=== PATIENT | female | born 1980 | race Caucasian/White ===

== ENCOUNTER 2020-07-07 17:31 | Emergency (ER) | payer OTHER ==
[2020-07-07] MEDS ORDERED: Sodium Chloride 0.9% 10 ML Syringe FLUSH PRN (17:36)
[2020-07-07] MEDS ORDERED: diphenhydrAMINE 50 MG/ML SDV IVPUSH ONE (17:36)
[2020-07-07] MEDS ORDERED: Famotidine 20 MG/2 ML SDV IVPUSH ONE (17:36)
[2020-07-07] MEDS ORDERED: EPINEPHrine 1 MG/ML SDV IM ONE (17:36)
[2020-07-07] MEDS ORDERED: Hydrocortisone Sodium Succinate 100 MG/2 ML SDV IVPUSH ONE (17:37)
[2020-07-07] MEDS ORDERED: Sodium Chloride 0.9% 1,000 ML IV ONE (17:37)
--- NOTE | 2020-07-07 17:43 | EDM.PDOC ---
ED HPI GENERAL MEDICAL PROBLEM - General Stated Complaint: REACTION TO SOMETHING Time Seen by Provider: 07/07/20 17:31 Source of Information: Reports: Patient History Limitations: Reports: No Limitations - History of Present Illness INITIAL COMMENTS - FREE TEXT/NARRATIVE: Vivi is a 39 year old female, presents to the ED today with c/o allergic reaction, unsure to what. Patient was hiking around [facility] when symptoms started including sob, eye swelling, hives and itching. Patient denies any allergic reactions like this in the past, denies any known insect bites prior to arrival. Patient has taken no medications, nothing makes her symptoms better or worse. Patient is on an oral anti-fungal for the last week, unsure what the name is for fungal infection to her feet. Onset: Today, Sudden - Related Data Allergies Allergy/AdvReac Type Severity Reaction Status Date / Time No Known Allergies Allergy Verified 07/07/20 17:55 ED ROS ALLERGIC REACTION - Review of Systems Review Of Systems: Comprehensive ROS is negative, except as noted in HPI. ED EXAM GENERAL NO PERIP PULSE - Physical Exam Exam: See Below Exam Limited By: No Limitations General Appearance: Alert, WD/WN, No Apparent Distress, Anxious Eye Exam: Bilateral Eye: EOMI, PERRL Ears: Normal External Exam Nose: Normal Inspection, Normal Mucosa Throat/Mouth: Normal Inspection, Normal Oropharynx, Normal Voice, No Airway Compromise Head: Atraumatic, Facial Swelling Neck: Normal Inspection, Supple, Non-Tender Respiratory/Chest: No Respiratory Distress, Lungs Clear, Normal Breath Sounds, No Accessory Muscle Use Cardiovascular: Normal Peripheral Pulses, Regular Rate, Rhythm GI/Abdominal: Normal Bowel Sounds, Soft, Non-Tender Back Exam: Normal Inspection Extremities: Normal Inspection Neurological: Alert, Oriented Psychiatric: Anxious Skin Exam: Other (Urticarial rash, lids swollen nearly shut bilaterally) Lymphatic: No Adenopathy Course - Vital Signs Text/Narrative:: 1744-Patient arrived to ED with allergic reaction to unknown substance. Patient with significant eyelid swelling, hives, and c/o sob. She is not whe ezing, hx of asthma, no stridor, handling secretions without difficulty. Patient on anti-fungal for the last week otherwise nothing new, no exposures to insects that she is aware of. Patient given IM epinephrine, IV Benadryl, IV Pepcid and IV solu-medrol. Patient feeling better, rash and swelling/hives/redness have all improved and I feel patient is able to be discharged home, no rebound symptoms. Will cover with a 5 day course of prednisone to be started tomorrow morning. Zyrtec or Claritin daily for 5 days. Benadryl as needed. Epi-pens prescribed as needed. Recommend patient stop the oral anti-fungal she is on and follow up with regard to this with the prescribing provider as this may be what contributed to her allergic reaction today. Reasons to return to the ED discussed patient and family, patient agreeable and discharged in stable condition with significant other driving. Last Recorded V/S: Last Vital Signs Temp 36.8 C 07/07/20 18:26 Pulse 75 07/07/20 18:26 Resp 19 07/07/20 18:26 BP 124/78 07/07/20 18:15 Pulse Ox 100 07/07/20 18:26 - Orders/Labs/Meds Orders: Active Orders 24 hr Category Date Time Status Peripheral IV Care [RC] . DIRECTED Care 07/07/20 17:36 Active Sodium Chloride 0.9% [Saline Flush] Med 07/07/20 17:36 Active 10 ml FLUSH ASDIRECTED PRN Peripheral IV Insertion Adult [OM.PC] Routine Oth 07/07/20 17:36 Ordered Medication Orders Sodium Chloride (Saline Flush) 10 ml FLUSH ASDIRECTED PRN PRN Reason: Keep Vein Open Last Admin: 07/07/20 18:49 Dose: 10 ml Documented by: CHOLO Meds: Medications Generic Name Dose Route Start Last Admin Trade Name Freq PRN Reason Stop Dose Admin Sodium Chloride 10 ml 07/07/20 17:36 07/07/20 18:49 Saline Flush FLUSH 10 ml ASDIRECTED PRN Administration Keep Vein Open Discontinued Medications Generic Name Dose Route Start Last Admin Trade Name Freq PRN Reason Stop Dose Admin Diphenhydramine HCl 50 mg 07/07/20 17:36 07/07/20 17:50 Benadryl IVPUSH 07/07/20 17:37 50 mg ONETIME ONE Administration Epinephrine HCl 0.3 mg 07/07/20 17:36 07/07/20 17:49 Adrenalin IM 07/07/20 17:37 0.3 mg ONETIME ONE Administration Famotidine 20 mg 07/07/20 17:36 07/07/20 17:50 Pepcid IVPUSH 07/07/20 17:37 20 mg ONETIME ONE Administration Hydrocortisone Sodium Succinate 125 mg 07/07/20 17:37 Solu-Cortef IVPUSH 07/07/20 17:38 ONETIME ONE Sodium Chloride 1,000 mls @ 999 mls/hr 07/07/20 17:37 07/07/20 17:50 Normal Saline IV 07/07/20 18:37 999 mls/hr .BOLUS ONE Administration Methylprednisolone Sodium Succinate 125 mg 07/07/20 17:49 07/07/20 17:51 Solu-Medrol IVPUSH 07/07/20 17:50 125 mg ONETIME ONE Administration Departure - Departure Time of Disposition: 20:00 Disposition: Home, Self-Care 01 Condition: Good Clinical Impression: Allergic reaction caused by a drug Qualifiers: Encounter type: initial encounter Qualified Code(s): T78.40XA - Allergy, unspecified, initial encounter - Discharge Information Instructions: Anaphylactic Reaction, Adult, How to Use an Auto-Injector Pen Referrals: PCP,None [Primary Care Provider] - Additional Instructions: Start oral prednisone tomorrow morning. Benadryl 25 mg every 4-6 hours as needed for itching/hives Zyrtec or Claritin daily for the next 5 days. Pepcid 20 mg daily for 5 days. Epi-pen as needed per package instructions. Please stop the anti-fungal medication you are taking for your feet and follow up with the prescribing provider regarding this. Return here with any worsening symptoms. Sepsis Event Note (ED) - Focused Exam Vital Signs: Vital Signs Temp Pulse Pulse Resp BP Pulse Ox 07/07/20 18:26 36.8 C 75 19 100 07/07/20 18:15 37.2 C 65 63 15 121/79 100 07/07/20 18:06 65 15 121/79 100 07/07/20 17:56 37.2 C 63 12 124/78 99 07/07/20 17:49 68 16 124/78 99 07/07/20 17:46 69 15 154/85 H 99 07/07/20 17:35 72 15 145/91 H 99 - My Orders Last 24 Hours: My Active Orders 07/07/20 17:36 Peripheral IV Care [RC] . DIRECTED Sodium Chloride 0.9% [Saline Flush] 10 ml FLUSH ASDIRECTED PRN Peripheral IV Insertion Adult [OM.PC] Routine - Assessment/Plan Last 24 Hours: My Active Orders 07/07/20 17:36 Peripheral IV Care [RC] . DIRECTED Sodium Chloride 0.9% [Saline Flush] 10 ml FLUSH ASDIRECTED PRN Peripheral IV Insertion Adult [OM.PC] Routine
[2020-07-07] MEDS ORDERED: methylPREDNISolone Sodium Succinate 125 MG/2 ML SDV IVPUSH ONE (17:49)
== END 2020-07-07 19:41 | disposition home or self-care (01) ==
LOC: JP.ED 17:31
DX: L50.0 Allergic urticaria (principal)
CPT/HCPCS: 96372; 96374; 96375; 99284; J0171; J1200; J2930; J3490; J7030; 99283